=== PATIENT | female | born 1995 | race Caucasian/White ===

== ENCOUNTER 2018-03-25 04:44 | Outpatient (CLI) | payer BC | END 2018-03-25 23:59 | disposition home or self-care (01) | LOC: DIABETIC 04:44 | PROVIDERS: ATTEND Specialist | DX: E11.65 Type 2 diabetes mellitus with hyperglycemia (principal) | CPT/HCPCS: G0108 ==

== ENCOUNTER 2018-07-30 00:19 | Outpatient (CLI) | payer BC | END 2018-07-30 23:59 | disposition home or self-care (01) | LOC: DIABETIC 00:19 | PROVIDERS: ATTEND Specialist | DX: E11.65 Type 2 diabetes mellitus with hyperglycemia (principal); Z79.84 Long term (current) use of oral hypoglycemic drugs; Z88.2 Allergy status to sulfonamides | CPT/HCPCS: G0108 ==